=== PATIENT | female | born 1995 | race American Indian/Alaskan Native ===

== ENCOUNTER 2017-02-27 11:45 | Emergency (ER) | payer OTHER ==
[2017-02-27 11:58] VITALS: BP 115/72; PULSE 100; TEMP 98.3
[2017-02-27] MEDS ORDERED: diphenhydrAMINE HCL 25 MG CAPSULE (FP) PO ONE ×2 (13:42→13:43)
--- NOTE | 2017-02-27 13:48 | PDOC ---
History of Present Illness - General Chief Complaint: Psychiatric Stated Complaint: EYE PROBLEM/.BODYACHES Time Seen by Provider: 02/27/17 12:41 History Source: Patient Exam Limitations: No Limitations - History of Present Illness Initial Comments: 02/27/17 13:48 Chief complaint: Tingling, burning, itchy sensation arms, rt. upper chest, inner thighs and scalp History of present illness: Patient is a 21-year-old female with no significant medical history except for having an appendectomy a few years ago. Patient reports that she smoked cannabis this morning and approximately one and a half hours later she started to feel a tingling burning itchy sensation to her scalp right upper chest arms and inner thighs. Patient reports that she has been smoking this same cannabis daily 1-2 times a day since the winter does not have any new cannabis. Patient denies taking any medications eating any new foods or using any new cosmetics. Patient denies any difficulty swallowing or breathing. Patient denies any palpitations. Patient also felt as if her eyelids were heavy. Patient reports anxious with fine hand tremors when in triage and was asked questions. Patient reports that like this when she is asked questions. Patient denies any headache, visual changes, dizziness, any auditory or visual hallucinations. Patient reports that her menstrual cycle finished yesterday. Patient is accompanied by her live-in boyfriend. Patient denies feeling stressed , is not working just finished a semester in school. He denies drinking any alcohol or having any contact with any chemicals recently. Pt. is not on any control except for condoms. LMP finished yesterday. Pt. denies any h/o panic attacks, anxiety or any other psychiatric illnesses. 02/27/17 13:57 02/27/17 22:29 Timing/Duration: changing over time (LESSENED ) Severity: moderate Associated Symptoms: reports: other (ITCHINESS OF SCALP ) Past History - Past Medical History Allergies/Adverse Reactions: Allergies Allergy/AdvReac Type Severity Reaction Status Date / Time No Known Allergies Allergy Verified 02/27/17 11:54 Home Medications: Ambulatory Orders NK [No Known Home Medication] 02/27/17 Other medical history: none - Psycho/Social/Smoking Cessation Hx Anxiety: No Suicidal Ideation: No Smoking History: Never smoked Have you smoked in the past 12 months: No Information on smoking cessation initiated: No Hx Alcohol Use: No Drug/Substance Use Hx: No Substance Use Type: Marijuana Review of Systems - Review of Systems Able to Perform ROS?: Yes Constitutional: No: Symptoms Reported HEENTM: No: Symptoms Reported Respiratory: No: Symptoms reported Cardiac (ROS): No: Symptoms Reported ABD/GI: No: Symptoms Reported : No: Symptoms Reported Musculoskeletal: No: Symptoms Reported Integumentary: No: Symptoms Reported Neurological: Yes: Tingling (tingling, itchy, burning sensation scalp, rt. upper chest, arms and medial thighs ). No: Headache Psychiatric: Yes: Other. No: Anxiety, Depression, Frequent Crying, Stressors, Sleep Pattern Change, Emotional Problems, Mood Swings, Change in Appetite Endocrine: No: Symptoms Reported *Physical Exam - Vital Signs Last Vital Signs Temp Pulse Resp BP Pulse Ox 98.3 F 100 H 18 115/72 100 02/27/17 11:55 02/27/17 11:55 02/27/17 11:55 02/27/17 11:55 02/27/17 11:55 - Physical Exam General Appearance: Yes: Appropriately Dressed HEENT: positive: EOMI, JAY JAY, Normal ENT Inspection Neck: negative: Lymphadenopathy (R), Lymphadenopathy (L) Respiratory/Chest: positive: Lungs Clear, Normal Breath Sounds. negative: Chest Tender, Respiratory Distress Cardiovascular: positive: Regular Rhythm, Regular Rate, S1, S2 Comments:: 02/27/17 14:00 PSYCH: Cooperative, engages easily good eye contact well groomed. Mood "good" affect: full, no loosening of associations, denies auditory/visual hallucinations, alert, oriented X 3, denies suicidal/homicidal ideations, insight/judgement slightly limited, denies obsessions/compulsions Extremity: positive: Normal Capillary Refill, Normal Inspection, Normal Range of Motion Integumentary: positive: Normal Color Neurologic: positive: painter rough II-XII NML intact, Fully Oriented, Alert, Normal Mood/ Affect, Normal Response, Motor Strength 5/5, Respond to painful stimul, Responsive, Finger to Nose. negative: Facial Droop, Numbness, Sensory Deficit ( arms, legs, scalp ), Confused, Disoriented Medical Decision Making - Medical Decision Making 02/27/17 13:52 Patient is a 21-year-old female with no significant medical history except for having an appendectomy a few years ago. Patient reports that she smoked cannabis this morning 4 hours ago than approximately one and a half hours later she started to feel a tingling, burning, itchy sensation to her scalp right upper chest arms and inner thighs. Patient reports that she has been smoking this same cannabis daily 1-2 times a day since the winter does not have any new cannabis. Patient denies taking any medications eating any new foods or using any new cosmetics. Patient denies any difficulty swallowing or breathing. Patient denies any palpitations. Patient also felt as if her eyelids were heavy. Patient reports anxious with fine hand tremors when in triage and was asked questions. Patient reports that like this when she is asked questions. Patient denies any headache, visual changes, dizziness, any auditory or visual hallucinations. Patient reports that her menstrual cycle finished yesterday. Patient is accompanied by her live-in boyfriend. Patient denies feeling stressed , is not working just finished a semester in school. He denies drinking any alcohol or having any contact with any chemicals recently. He denies seeing any rash on her body. She denies any insect bites. Denies any history of anxiety or panic attacks. Pt. is not on any control except for condoms. LMP finished yesterday. adverse reaction to cannabis PLAN: benadryl 25 mg po now follow up with PCP return to ER if any new symptoms develop or any difficulty breathing or swallowing 02/27/17 13:53 02/27/17 13:58 02/27/17 14:03 02/27/17 22:32 *DC/Admit/Observation/Transfer Diagnosis at time of Disposition: Adverse reaction to cannabis Qualifiers: Encounter type: initial encounter Qualified Code(s): T40.7X5A - Adverse effect of cannabis (derivatives), initial encounter - Discharge Dispostion Disposition: HOME Condition at time of disposition: Stable - Referrals Referrals: Stephanie Mantilla MD [Primary Care Provider] - - Patient Instructions Additional Instructions: FOLLOW UP WITH PRIMARY CARE PROVIDER IN 2 DAYS RETURN TO EMERGENCY ROOM IF SYMPTOMS WORSEN OR ANY NEW SYMPTOMS DEVELOP ESPECIALLY IF ANY DIFFICULTY SWALLOWING OR BREATHING TAKE BENADRYL NEEDED DIRECTED BY [employer] PATIENT VOICED UNDERSTANDING OF DISCHARGE INSTRUCTIONS
== END 2017-02-27 13:59 | disposition home or self-care (01) ==
LOC: JERFT 11:45
DX: T40.7X5A Adverse effect of cannabis (derivatives), initial encounter (principal)
CPT/HCPCS: 99281-25